=== PATIENT | female | born 1945 | race Caucasian/White ===

== ENCOUNTER 2018-02-27 22:50 | Inpatient (IN) ==
[2018-02-27 23:57] LABS: Basophils # 0.1 10*3/uL (0.0-0.2); Basophils % 0.3 % (0.0-0.8); Hematocrit 35.4 VOL% (35.7-47.0); Hemoglobin 11.2 GM/DL (12.0-16.0); Immature Granulocytes Absolute 0.25 #; Lymphocytes # 0.8 10*3/uL (1.4-4.0); Lymphocytes % 3.3 % (21.3-54.2); Mean Corpuscular HGB Conc 31.6 GM/DL (32-36); Mean Corpuscular Hemoglobin 26 PG (27-34); Mean Corpuscular Volume 82.1 FL (87-102); Mean Platelet Volume 9.2 FL (9.6-12.0); Neutrophils # 21.9 10*3/uL (1.4-7.4); Neutrophils % 91.4 % (38.7-73.9); Platelet Count 261 T/CUMM (130-400); Red Blood Count 4.31 MC/CUMM (3.8-5.5); Red Cell Distribution Width 17.5 % (9.3-17.3)
[2018-02-28] MEDS ORDERED: CEFTAROLINE 600 MG in SODIUM CHLORIDE 0.9% 100 ML IV STA (00:02)
[2018-02-28] MEDS ORDERED: MORPHINE 4 MG/1 ML VIAL IV STA (00:20)
[2018-02-28] MEDS ORDERED: ONDANSETRON 4 MG/2 ML VIAL IV STA (00:20)
[2018-02-28 00:23] LABS: Alanine Aminotransferase 24 U/L (13-56); Albumin 2.2 G/DL (3.4-5.0); Alkaline Phosphatase 100 U/L (45-117); Aspartate Amino Transferase 31 U/L (0-37); Blood Urea Nitrogen 24 MG/DL (7-18); Calcium 8.4 MG/DL (8.5-10.1); Glucose 386 MG/DL (74-106); Osmolality,Calculated 277.9 MOS/KG (273-304); Potassium 3.4 MMOL/L (3.5-5.1); Sodium 129 MMOL/L (136-145); Total Protein 7.6 G/DL (6.4-8.3)
[2018-02-28 00:31] LABS: Lactic Acid 3.4 MMOL/L (0.4-2.0)
[2018-02-28] MEDS ORDERED: SODIUM CHLORIDE 0.9% 1,000 ML IV STA (01:04)
[2018-02-28 01:38] LABS: Band Neutrophils 7 % (0-10); Lymphocytes 3 % (20-55); Segmented Neutrophils 87 % (50-85); Total Cells Counted 100
[2018-02-28 01:39] LABS: Platelet Estimate Normal
[2018-02-28] MEDS ORDERED: GLUCAGON 1 MG VIAL IM PRN ×2 (02:30)
[2018-02-28] MEDS ORDERED: ONDANSETRON 4 MG/2 ML VIAL IV PRN (02:30)
[2018-02-28] MEDS ORDERED: DEXTROSE 50% 25 GM/50 ML VIAL IV PRN ×2 (02:30)
[2018-02-28] MEDS: MORPHINE 4 MG/1 ML VIAL IV PRN ×3 (03:43→20:10)
[2018-02-28] MEDS: POTASSIUM CHLORIDE 20 MEQ TABLET PO PRN ×3 (03:51→09:42)
[2018-02-28] MEDS: INSULIN REGULAR 100 UNIT/ML SUBCUT SCH ×5 (04:15→21:15)
[2018-02-28 07:16] LABS: Basophils # 0.1 10*3/uL (0.0-0.2); Basophils % 0.2 % (0.0-0.8); Hematocrit 32.9 VOL% (35.7-47.0); Hemoglobin 10.4 GM/DL (12.0-16.0); Immature Granulocytes % 1.3 %; Immature Granulocytes Absolute 0.31 #; Lymphocytes # 0.8 10*3/uL (1.4-4.0); Lymphocytes % 3.2 % (21.3-54.2); Mean Corpuscular HGB Conc 31.6 GM/DL (32-36); Mean Corpuscular Hemoglobin 26 PG (27-34); Mean Corpuscular Volume 83.3 FL (87-102); Mean Platelet Volume 9.6 FL (9.6-12.0); Monocytes # 1.1 10*3/uL (0.11-0.8); Monocytes % 4.4 % (1.7-12.7); Neutrophils # 22.5 10*3/uL (1.4-7.4); Neutrophils % 90.9 % (38.7-73.9); Platelet Count 239 T/CUMM (130-400); Red Blood Count 3.95 MC/CUMM (3.8-5.5); Red Cell Distribution Width 17.5 % (9.3-17.3); White Blood Count 24.8 T/CUMM (4-12)
[2018-02-28 07:37] LABS: Band Neutrophils 7 % (0-10); Lymphocytes 9 % (20-55); Platelet Estimate Normal; Segmented Neutrophils 82 % (50-85); Total Cells Counted 100
[2018-02-28 07:52] LABS: Albumin 2.2 G/DL (3.4-5.0); Bilirubin,Total 0.7 MG/DL (0.2-1.0); Calcium 7.9 MG/DL (8.5-10.1); Osmolality,Calculated 278.8 MOS/KG (273-304); Potassium 3.4 MMOL/L (3.5-5.1); Total Protein 7.2 G/DL (6.4-8.3)
[2018-02-28] MEDS ORDERED: FERROUS SULFATE 325 MG TABLET PO SCH (09:00)
[2018-02-28] MEDS ORDERED: ENOXAPARIN 30 MG/0.3 ML SYRINGE SUBCUT SCH (09:00)
[2018-02-28] MEDS: ISOSORBIDE MONONITRATE 30 MG TABLET PO SCH ×2 (09:41→21:15)
[2018-02-28] MEDS: RIVAROXABAN 20 MG TABLET PO SCH (09:41)
[2018-02-28] MEDS: hydrALAZINE 25 MG TABLET PO SCH ×3 (09:42→21:15)
[2018-02-28] MEDS: MULTIVITAMIN (CENTRUM) TABLET PO SCH (09:42)
[2018-02-28] MEDS: CETIRIZINE 10 MG TABLET PO SCH (09:42)
[2018-02-28] MEDS: FERROUS SULFATE 325 MG TABLET PO SCH (09:42)
[2018-02-28] MEDS: PANTOPRAZOLE 40 MG TABLET PO SCH (09:42)
[2018-02-28] MEDS: LISINOPRIL 10 MG TABLET PO SCH ×2 (09:42→21:15)
[2018-02-28] MEDS: AMIODARONE 200 MG TABLET PO SCH (09:42)
[2018-02-28] MEDS: CARVEDILOL 12.5 MG TABLET PO SCH ×2 (09:42→21:15)
[2018-02-28] MEDS: ATORVASTATIN 40 MG TABLET PO SCH (09:43)
[2018-02-28] MEDS: SODIUM CHLORIDE 0.9% 1,000 ML IV SCH (09:43)
[2018-02-28] MEDS: INSULIN NPH 100 UNIT/ML SUBCUT SCH ×2 (09:43→17:59)
[2018-02-28] MEDS: CEFTAROLINE 400 MG in SODIUM CHLORIDE 0.9% 100 ML IV SCH ×2 (12:36→23:44)
[2018-02-28 12:39] LABS: Apearance,Urine CLOUDY (Clear); Bacteria,Urine Many /HPF (Few); Bilirubin,Urine Negative (Negative); Blood, Urine Large mg/dL (Negative); Glucose,Urine (UA) >=500 mg/dL (Negative); Ketones,Urine Negative (Negative); Nitrite,Urine Negative (Negative); Protein,Urine >=500 MG/DL; RBC,Urine 977 /HPF (0-4); Squamous Epithelial Cell,Urine Occasional /HPF (0-10); Urine Color Amber (Yellow); Urine Specific Gravity 1.012 (1.001-1.035); Urine Urobilinogen < 2.0 EU/DL (0.2-1.0); WBC,Urine 461 /HPF (0-6)
[2018-02-28] MEDS: traMADol 50 MG TABLET PO PRN ×2 (14:05→23:46)
[2018-02-28] MEDS ORDERED: SKIN HEALING OINT (AQUAPHOR) 50 GM TUBE TOP PRN (14:08)
[2018-03-01] MEDS: MORPHINE 4 MG/1 ML VIAL IV PRN (01:02)
[2018-03-01 05:36] LABS: Basophils # 0.1 10*3/uL (0.0-0.2); Basophils % 0.2 % (0.0-0.8); Hematocrit 31.7 VOL% (35.7-47.0); Hemoglobin 10.1 GM/DL (12.0-16.0); Immature Granulocytes % 1.2 %; Immature Granulocytes Absolute 0.28 #; Lymphocytes # 0.8 10*3/uL (1.4-4.0); Lymphocytes % 3.4 % (21.3-54.2); Mean Corpuscular HGB Conc 31.9 GM/DL (32-36); Mean Corpuscular Hemoglobin 26 PG (27-34); Mean Corpuscular Volume 81.7 FL (87-102); Monocytes # 1.4 10*3/uL (0.11-0.8); Monocytes % 6.1 % (1.7-12.7); Neutrophils # 20.4 10*3/uL (1.4-7.4); Neutrophils % 89.1 % (38.7-73.9); Platelet Count 267 T/CUMM (130-400); Red Blood Count 3.88 MC/CUMM (3.8-5.5); Red Cell Distribution Width 17.7 % (9.3-17.3); White Blood Count 22.9 T/CUMM (4-12)
[2018-03-01 05:51] LABS: Calcium 8.5 MG/DL (8.5-10.1); Osmolality,Calculated 272.9 MOS/KG (273-304); Potassium 4.2 MMOL/L (3.5-5.1)
[2018-03-01 05:52] LABS: Lactic Acid 1.1 MMOL/L (0.4-2.0)
[2018-03-01 05:56] LABS: Band Neutrophils 1 % (0-10); Lymphocytes 3 % (20-55); Segmented Neutrophils 88 % (50-85); Total Cells Counted 100
[2018-03-01 05:59] LABS: Hypochromasia 1+; Platelet Estimate Adequate
[2018-03-01] MEDS: traMADol 50 MG TABLET PO PRN ×3 (06:24→20:56)
[2018-03-01] MEDS: LEVOTHYROXINE 50 MCG TABLET PO SCH (06:24)
[2018-03-01] MEDS: SODIUM CHLORIDE 0.9% 1,000 ML IV SCH (07:58)
[2018-03-01] MEDS: LISINOPRIL 10 MG TABLET PO SCH ×2 (09:11→20:56)
[2018-03-01] MEDS: hydrALAZINE 25 MG TABLET PO SCH ×3 (09:11→20:56)
[2018-03-01] MEDS: ATORVASTATIN 40 MG TABLET PO SCH (09:11)
[2018-03-01] MEDS: CETIRIZINE 10 MG TABLET PO SCH (09:11)
[2018-03-01] MEDS: MULTIVITAMIN (CENTRUM) TABLET PO SCH (09:11)
[2018-03-01] MEDS: FERROUS SULFATE 325 MG TABLET PO SCH (09:11)
[2018-03-01] MEDS: ISOSORBIDE MONONITRATE 30 MG TABLET PO SCH ×2 (09:12→20:56)
[2018-03-01] MEDS: RIVAROXABAN 20 MG TABLET PO SCH (09:12)
[2018-03-01] MEDS: AMIODARONE 200 MG TABLET PO SCH (09:12)
[2018-03-01] MEDS: PANTOPRAZOLE 40 MG TABLET PO SCH (09:12)
[2018-03-01] MEDS: CARVEDILOL 12.5 MG TABLET PO SCH ×2 (09:12→20:56)
[2018-03-01] MEDS: INSULIN REGULAR 100 UNIT/ML SUBCUT SCH ×4 (09:49→20:57)
[2018-03-01] MEDS: INSULIN NPH 100 UNIT/ML SUBCUT SCH ×2 (10:00→20:58)
[2018-03-01] MEDS ORDERED: ASPIRIN 325 MG TABLET ONE (10:44)
[2018-03-01] MEDS: CEFTAROLINE 400 MG in SODIUM CHLORIDE 0.9% 100 ML IV SCH (11:51)
[2018-03-01] MEDS ORDERED: LEVOFLOXACIN INJ 500 MG in PREMIX 1 EACH IV SCH (13:30)
[2018-03-02] MEDS: CEFTAROLINE 400 MG in SODIUM CHLORIDE 0.9% 100 ML IV SCH ×2 (00:26→12:58)
[2018-03-02] MEDS: LEVOTHYROXINE 50 MCG TABLET PO SCH (06:35)
[2018-03-02 06:56] LABS: Basophils % 0.3 % (0.0-0.8); Hematocrit 29.5 VOL% (35.7-47.0); Hemoglobin 9.3 GM/DL (12.0-16.0); Immature Granulocytes % 2.3 %; Immature Granulocytes Absolute 0.36 #; Lymphocytes # 0.9 10*3/uL (1.4-4.0); Lymphocytes % 5.9 % (21.3-54.2); Mean Corpuscular HGB Conc 31.5 GM/DL (32-36); Mean Corpuscular Hemoglobin 26 PG (27-34); Mean Corpuscular Volume 82.2 FL (87-102); Mean Platelet Volume 9.4 FL (9.6-12.0); Monocytes # 1.3 10*3/uL (0.11-0.8); Monocytes % 8.3 % (1.7-12.7); Neutrophils # 13.2 10*3/uL (1.4-7.4); Neutrophils % 83.2 % (38.7-73.9); Platelet Count 261 T/CUMM (130-400); Red Blood Count 3.59 MC/CUMM (3.8-5.5); Red Cell Distribution Width 17.3 % (9.3-17.3); White Blood Count 15.9 T/CUMM (4-12)
[2018-03-02 07:26] LABS: Calcium 7.8 MG/DL (8.5-10.1); Osmolality,Calculated 278.7 MOS/KG (273-304); Potassium 4.2 MMOL/L (3.5-5.1)
[2018-03-02] MEDS: traMADol 50 MG TABLET PO PRN ×3 (09:28→21:36)
[2018-03-02] MEDS: CETIRIZINE 10 MG TABLET PO SCH (09:29)
[2018-03-02] MEDS: AMIODARONE 200 MG TABLET PO SCH (09:29)
[2018-03-02] MEDS: RIVAROXABAN 20 MG TABLET PO SCH (09:30)
[2018-03-02] MEDS: hydrALAZINE 25 MG TABLET PO SCH ×3 (09:30→21:36)
[2018-03-02] MEDS: CARVEDILOL 12.5 MG TABLET PO SCH ×2 (09:30→21:36)
[2018-03-02] MEDS: MULTIVITAMIN (CENTRUM) TABLET PO SCH (09:30)
[2018-03-02] MEDS: PANTOPRAZOLE 40 MG TABLET PO SCH (09:31)
[2018-03-02] MEDS: LISINOPRIL 10 MG TABLET PO SCH ×2 (09:31→21:35)
[2018-03-02] MEDS: FERROUS SULFATE 325 MG TABLET PO SCH (09:31)
[2018-03-02] MEDS: ISOSORBIDE MONONITRATE 30 MG TABLET PO SCH ×2 (09:31→21:36)
[2018-03-02] MEDS: INSULIN REGULAR 100 UNIT/ML SUBCUT SCH ×4 (09:32→21:37)
[2018-03-02] MEDS: ATORVASTATIN 40 MG TABLET PO SCH (09:33)
[2018-03-02] MEDS: SODIUM CHLORIDE 0.9% 1,000 ML IV SCH ×2 (09:36→21:35)
[2018-03-02] MEDS: INSULIN NPH 100 UNIT/ML SUBCUT SCH ×2 (10:46→21:35)
[2018-03-02] MEDS: LEVOFLOXACIN INJ 250 MG in PREMIX 1 EACH IV SCH (15:03)
[2018-03-03] MEDS: CEFTAROLINE 400 MG in SODIUM CHLORIDE 0.9% 100 ML IV SCH ×2 (00:07→18:10)
[2018-03-03] MEDS: traMADol 50 MG TABLET PO PRN ×3 (03:34→22:29)
[2018-03-03] MEDS: SODIUM CHLORIDE 0.9% 1,000 ML IV SCH ×2 (03:37→22:25)
[2018-03-03] MEDS: LEVOTHYROXINE 50 MCG TABLET PO SCH (06:07)
[2018-03-03 08:05] LABS: Basophils # 0.1 10*3/uL (0.0-0.2); Basophils % 0.6 % (0.0-0.8); Eosinophils % 0.1 % (0.00-10.9); Hematocrit 28.8 VOL% (35.7-47.0); Hemoglobin 9.1 GM/DL (12.0-16.0); Immature Granulocytes % 2.5 %; Immature Granulocytes Absolute 0.27 #; Lymphocytes # 0.8 10*3/uL (1.4-4.0); Mean Corpuscular HGB Conc 31.6 GM/DL (32-36); Mean Corpuscular Hemoglobin 26 PG (27-34); Mean Corpuscular Volume 81.6 FL (87-102); Mean Platelet Volume 9.5 FL (9.6-12.0); Monocytes # 1.2 10*3/uL (0.11-0.8); Monocytes % 11.1 % (1.7-12.7); Neutrophils # 8.4 10*3/uL (1.4-7.4); Neutrophils % 78.7 % (38.7-73.9); Platelet Count 275 T/CUMM (130-400); Red Blood Count 3.53 MC/CUMM (3.8-5.5); Red Cell Distribution Width 17.3 % (9.3-17.3); White Blood Count 10.7 T/CUMM (4-12)
[2018-03-03 08:37] LABS: Calcium 8.2 MG/DL (8.5-10.1); Osmolality,Calculated 281.5 MOS/KG (273-304); Potassium 3.9 MMOL/L (3.5-5.1)
[2018-03-03] MEDS: INSULIN NPH 100 UNIT/ML SUBCUT SCH ×2 (08:46→22:24)
[2018-03-03] MEDS: hydrALAZINE 25 MG TABLET PO SCH ×3 (08:58→22:24)
[2018-03-03] MEDS: CETIRIZINE 10 MG TABLET PO SCH (08:58)
[2018-03-03] MEDS: PANTOPRAZOLE 40 MG TABLET PO SCH (08:58)
[2018-03-03] MEDS: LISINOPRIL 10 MG TABLET PO SCH ×2 (08:58→22:24)
[2018-03-03] MEDS: MULTIVITAMIN (CENTRUM) TABLET PO SCH (08:58)
[2018-03-03] MEDS: FERROUS SULFATE 325 MG TABLET PO SCH (08:58)
[2018-03-03] MEDS: AMIODARONE 200 MG TABLET PO SCH (08:58)
[2018-03-03] MEDS: CARVEDILOL 12.5 MG TABLET PO SCH ×2 (08:58→22:23)
[2018-03-03] MEDS: ATORVASTATIN 40 MG TABLET PO SCH (08:58)
[2018-03-03] MEDS: ISOSORBIDE MONONITRATE 30 MG TABLET PO SCH ×2 (08:58→22:24)
[2018-03-03] MEDS: RIVAROXABAN 20 MG TABLET PO SCH (08:58)
[2018-03-03] MEDS: INSULIN REGULAR 100 UNIT/ML SUBCUT SCH ×4 (08:59→22:34)
[2018-03-03] MEDS: LEVOFLOXACIN INJ 250 MG in PREMIX 1 EACH IV SCH (17:28)
[2018-03-04] MEDS: SODIUM CHLORIDE 0.9% 1,000 ML IV SCH ×2 (06:28→21:48)
[2018-03-04] MEDS: LEVOTHYROXINE 50 MCG TABLET PO SCH (06:29)
[2018-03-04 07:22] LABS: Calcium 8.5 MG/DL (8.5-10.1); Osmolality,Calculated 281.5 MOS/KG (273-304); Potassium 3.7 MMOL/L (3.5-5.1)
[2018-03-04] MEDS: CETIRIZINE 10 MG TABLET PO SCH (09:36)
[2018-03-04] MEDS: RIVAROXABAN 20 MG TABLET PO SCH (09:36)
[2018-03-04] MEDS: FERROUS SULFATE 325 MG TABLET PO SCH (09:36)
[2018-03-04] MEDS: AMIODARONE 200 MG TABLET PO SCH (09:37)
[2018-03-04] MEDS: MULTIVITAMIN (CENTRUM) TABLET PO SCH (09:37)
[2018-03-04] MEDS: LISINOPRIL 10 MG TABLET PO SCH ×2 (09:37→21:48)
[2018-03-04] MEDS: hydrALAZINE 25 MG TABLET PO SCH ×3 (09:37→21:48)
[2018-03-04] MEDS: CARVEDILOL 12.5 MG TABLET PO SCH ×2 (09:37→21:48)
[2018-03-04] MEDS: INSULIN REGULAR 100 UNIT/ML SUBCUT SCH ×3 (09:37→19:06)
[2018-03-04] MEDS: ATORVASTATIN 40 MG TABLET PO SCH (09:37)
[2018-03-04] MEDS: ISOSORBIDE MONONITRATE 30 MG TABLET PO SCH ×2 (09:37→21:47)
[2018-03-04] MEDS: PANTOPRAZOLE 40 MG TABLET PO SCH (09:37)
[2018-03-04] MEDS: traMADol 50 MG TABLET PO PRN ×2 (13:52→21:47)
[2018-03-04] MEDS: INSULIN NPH 100 UNIT/ML SUBCUT SCH ×2 (13:55→21:55)
[2018-03-04] MEDS: LEVOFLOXACIN INJ 250 MG in PREMIX 1 EACH IV SCH (15:40)
[2018-03-05] MEDS: INSULIN REGULAR 100 UNIT/ML SUBCUT SCH ×5 (00:28→21:28)
[2018-03-05] MEDS: LEVOTHYROXINE 50 MCG TABLET PO SCH (06:29)
[2018-03-05] MEDS ORDERED: INSULIN NPH 100 UNIT/ML SUBCUT SCH (07:49)
[2018-03-05 08:07] LABS: Basophils # 0.1 10*3/uL (0.0-0.2); Basophils % 0.4 % (0.0-0.8); Eosinophils % 0.3 % (0.00-10.9); Hematocrit 32.7 VOL% (35.7-47.0); Hemoglobin 10.6 GM/DL (12.0-16.0); Immature Granulocytes % 2.5 %; Immature Granulocytes Absolute 0.33 #; Lymphocytes # 1.1 10*3/uL (1.4-4.0); Lymphocytes % 8.3 % (21.3-54.2); Mean Corpuscular HGB Conc 32.4 GM/DL (32-36); Mean Corpuscular Hemoglobin 26 PG (27-34); Mean Corpuscular Volume 80.7 FL (87-102); Mean Platelet Volume 8.6 FL (9.6-12.0); Monocytes # 1.2 10*3/uL (0.11-0.8); Monocytes % 8.7 % (1.7-12.7); Neutrophils # 10.6 10*3/uL (1.4-7.4); Neutrophils % 79.8 % (38.7-73.9); Platelet Count 384 T/CUMM (130-400); Red Blood Count 4.05 MC/CUMM (3.8-5.5); Red Cell Distribution Width 17.3 % (9.3-17.3); White Blood Count 13.3 T/CUMM (4-12)
[2018-03-05 08:25] LABS: Albumin 1.6 G/DL (3.4-5.0); Bilirubin,Total 0.6 MG/DL (0.2-1.0); Calcium 8.6 MG/DL (8.5-10.1); Potassium 3.8 MMOL/L (3.5-5.1); Total Protein 7.2 G/DL (6.4-8.3)
[2018-03-05] MEDS: ISOSORBIDE MONONITRATE 30 MG TABLET PO SCH ×2 (08:26→21:29)
[2018-03-05] MEDS: RIVAROXABAN 20 MG TABLET PO SCH (08:26)
[2018-03-05] MEDS: CARVEDILOL 12.5 MG TABLET PO SCH ×2 (08:26→21:28)
[2018-03-05] MEDS: ATORVASTATIN 40 MG TABLET PO SCH (08:26)
[2018-03-05] MEDS: FERROUS SULFATE 325 MG TABLET PO SCH (08:26)
[2018-03-05] MEDS: MULTIVITAMIN (CENTRUM) TABLET PO SCH (08:26)
[2018-03-05] MEDS: CETIRIZINE 10 MG TABLET PO SCH (08:26)
[2018-03-05] MEDS: PANTOPRAZOLE 40 MG TABLET PO SCH (08:26)
[2018-03-05] MEDS: LISINOPRIL 10 MG TABLET PO SCH ×2 (08:31→21:29)
[2018-03-05] MEDS: hydrALAZINE 25 MG TABLET PO SCH ×3 (08:31→16:04)
[2018-03-05] MEDS: AMIODARONE 200 MG TABLET PO SCH (08:31)
[2018-03-05] MEDS: FUROSEMIDE 80 MG TABLET PO SCH (08:35)
[2018-03-05] MEDS: SODIUM CHLORIDE 0.9% 1,000 ML IV SCH (09:43)
[2018-03-05 14:02] LABS: Apearance,Urine CLOUDY (Clear); Bilirubin,Urine Negative (Negative); Blood, Urine Large mg/dL (Negative); Glucose,Urine (UA) 150 mg/dL (Negative); Ketones,Urine Negative (Negative); Nitrite,Urine Negative (Negative); Protein,Urine 100 MG/DL; RBC,Urine 931 /HPF (0-4); Urine Color Amber (Yellow); Urine Urobilinogen < 2.0 EU/DL (0.2-1.0); WBC,Urine 66 /HPF (0-6)
[2018-03-05] MEDS ORDERED: cefTRIAXone 1,000 MG in SYRINGE 1 EACH IV SCH (16:00)
[2018-03-05] MEDS: LEVOFLOXACIN INJ 250 MG in PREMIX 1 EACH IV SCH (16:03)
[2018-03-05] MEDS ORDERED: hydrALAZINE 20 MG/1 ML VIAL IV PRN (16:07)
[2018-03-06 05:59] LABS: Basophils % 0.3 % (0.0-0.8); Eosinophils % 0.2 % (0.00-10.9); Hematocrit 34.5 VOL% (35.7-47.0); Hemoglobin 10.9 GM/DL (12.0-16.0); Immature Granulocytes % 2.4 %; Lymphocytes # 1.5 10*3/uL (1.4-4.0); Lymphocytes % 11.8 % (21.3-54.2); Mean Corpuscular HGB Conc 31.6 GM/DL (32-36); Mean Corpuscular Hemoglobin 26 PG (27-34); Mean Corpuscular Volume 80.6 FL (87-102); Mean Platelet Volume 8.5 FL (9.6-12.0); Monocytes # 0.8 10*3/uL (0.11-0.8); Monocytes % 6.7 % (1.7-12.7); Neutrophils # 9.7 10*3/uL (1.4-7.4); Neutrophils % 78.6 % (38.7-73.9); Platelet Count 427 T/CUMM (130-400); Red Blood Count 4.28 MC/CUMM (3.8-5.5); Red Cell Distribution Width 17.3 % (9.3-17.3); White Blood Count 12.3 T/CUMM (4-12)
[2018-03-06] MEDS: LEVOTHYROXINE 50 MCG TABLET PO SCH (06:19)
[2018-03-06 06:26] LABS: Albumin 1.5 G/DL (3.4-5.0); Bilirubin,Total 0.7 MG/DL (0.2-1.0); Calcium 9.1 MG/DL (8.5-10.1); Potassium 3.3 MMOL/L (3.5-5.1); Total Protein 6.9 G/DL (6.4-8.3)
[2018-03-06] MEDS ORDERED: POTASSIUM CHLORIDE 20 MEQ TABLET PO ONE (07:16)
[2018-03-06] MEDS ORDERED: CEFTAROLINE 600 MG in SODIUM CHLORIDE 0.9% 100 ML IV SCH (08:00)
[2018-03-06 08:11] LABS: Barbiturates Screen,Urine Negative (Negative); Benzodiazepines Screen,Urine Negative (Negative); Cannabinoid Screen,Urine Negative (Negative); Opiate Screen,Urine Positive (Negative); Phencyclidine Screen,Urine Negative (Negative)
[2018-03-06] MEDS: INSULIN REGULAR 100 UNIT/ML SUBCUT SCH ×4 (08:28→21:20)
[2018-03-06 08:36] LABS: Hepatitis A Ab IgM Quant 0.35 Index; Hepatitis A Ab IgM Result Negative (Negative); Hepatitis B Core IgM Quant < 0.05 Index; Hepatitis B Core IgM Result Negative (Negative); Hepatitis B Surface Ag Result Negative (Negative); Hepatitis C Virus Ab Quant 0.19 Index; Hepatitis C Virus Ab Result Negative (Negative)
[2018-03-06] MEDS: PANTOPRAZOLE 40 MG TABLET PO SCH (09:27)
[2018-03-06] MEDS: FUROSEMIDE 80 MG TABLET PO SCH (09:28)
[2018-03-06] MEDS: CARVEDILOL 12.5 MG TABLET PO SCH ×2 (09:28→21:19)
[2018-03-06] MEDS: LISINOPRIL 10 MG TABLET PO SCH ×2 (09:31→21:20)
[2018-03-06] MEDS: ISOSORBIDE MONONITRATE 30 MG TABLET PO SCH ×2 (09:34→21:19)
[2018-03-06] MEDS: RIVAROXABAN 20 MG TABLET PO SCH (09:34)
[2018-03-06] MEDS: MULTIVITAMIN (CENTRUM) TABLET PO SCH (09:34)
[2018-03-06] MEDS: FERROUS SULFATE 325 MG TABLET PO SCH (09:34)
[2018-03-06 11:47] LABS: INR 1.8; PT Patient Result 18.8 SECS
[2018-03-06 13:17] LABS: Apearance,Urine Slightly Hazy (Clear); Bilirubin,Urine Negative (Negative); Blood, Urine Large mg/dL (Negative); Glucose,Urine (UA) 150 mg/dL (Negative); Ketones,Urine Negative (Negative); Nitrite,Urine Negative (Negative); Protein,Urine 100 MG/DL; Urine Color Amber (Yellow); Urine Urobilinogen 0.2 EU/DL (0.2-1.0)
[2018-03-06 13:18] LABS: RBC,Urine TNTC /HPF (0-4); Squamous Epithelial Cell,Urine Few /HPF (0-10); WBC,Urine 0-5 /HPF (0-6)
[2018-03-06] MEDS: cefTRIAXone 2,000 MG in SYRINGE 1 EACH IV SCH (16:27)
[2018-03-06] MEDS: ACYCLOVIR INJ 850 MG in SODIUM CHLORIDE 0.9% 250 ML IV SCH (17:31)
[2018-03-06] MEDS: AMPICILLIN INJ 2,000 MG in SODIUM CHLORIDE 0.9% 100 ML IV SCH (18:51)
[2018-03-06] MEDS: VANCOMYCIN INJ 1,250 MG in SODIUM CHLORIDE 0.9% 250 ML IV SCH (21:22)
[2018-03-07] MEDS: AMPICILLIN INJ 2,000 MG in SODIUM CHLORIDE 0.9% 100 ML IV SCH ×2 (00:55→06:15)
[2018-03-07] MEDS: ACYCLOVIR INJ 850 MG in SODIUM CHLORIDE 0.9% 250 ML IV SCH ×2 (02:14→09:40)
[2018-03-07] MEDS: cefTRIAXone 2,000 MG in SYRINGE 1 EACH IV SCH (05:41)
[2018-03-07] MEDS: LEVOTHYROXINE 50 MCG TABLET PO SCH (06:16)
[2018-03-07 06:38] LABS: Albumin 1.2 G/DL (3.4-5.0); Calcium 8.1 MG/DL (8.5-10.1); Osmolality,Calculated 306.6 MOS/KG (273-304); Potassium 3.5 MMOL/L (3.5-5.1); Total Protein 5.8 G/DL (6.4-8.3)
[2018-03-07] MEDS: INSULIN REGULAR 100 UNIT/ML SUBCUT SCH ×4 (09:35→22:03)
[2018-03-07] MEDS: MULTIVITAMIN (CENTRUM) TABLET PO SCH (09:36)
[2018-03-07] MEDS: FUROSEMIDE 80 MG TABLET PO SCH (09:36)
[2018-03-07] MEDS: FERROUS SULFATE 325 MG TABLET PO SCH (09:36)
[2018-03-07] MEDS: PANTOPRAZOLE 40 MG TABLET PO SCH (09:36)
[2018-03-07] MEDS: RIVAROXABAN 20 MG TABLET PO SCH (09:36)
[2018-03-07] MEDS: LISINOPRIL 10 MG TABLET PO SCH ×2 (09:36→22:03)
[2018-03-07] MEDS: CARVEDILOL 12.5 MG TABLET PO SCH ×2 (09:36→22:03)
[2018-03-07] MEDS: ISOSORBIDE MONONITRATE 30 MG TABLET PO SCH ×2 (09:40→22:04)
[2018-03-07] MEDS: AMIODARONE 200 MG TABLET PO SCH (11:48)
[2018-03-07] MEDS: VANCOMYCIN INJ 1,250 MG in SODIUM CHLORIDE 0.9% 250 ML IV SCH (17:22)
[2018-03-07] MEDS ORDERED: traMADol 50 MG TABLET PO ONE (18:41)
[2018-03-07 19:12] LABS: Apearance,Urine Slightly Hazy (Clear); Bilirubin,Urine Negative (Negative); Blood, Urine Moderate mg/dL (Negative); Glucose,Urine (UA) >=500 mg/dL (Negative); Ketones,Urine Negative (Negative); Nitrite,Urine Negative (Negative); Protein,Urine 30 MG/DL; RBC,Urine 279 /HPF (0-4); Squamous Epithelial Cell,Urine Occasional /HPF (0-10); Urine Color Yellow (Yellow); Urine Specific Gravity 1.007 (1.001-1.035); Urine Urobilinogen < 2.0 EU/DL (0.2-1.0)
[2018-03-07] MEDS ORDERED: TAMSULOSIN 0.4 MG CAPSULE PO SCH (21:00)
[2018-03-08] MEDS: LEVOTHYROXINE 50 MCG TABLET PO SCH (06:25)
[2018-03-08 06:46] LABS: Basophils % 0.3 % (0.0-0.8); Eosinophils # 0.2 10*3/uL (0.0-0.87); Eosinophils % 2.1 % (0.00-10.9); Hematocrit 27.7 VOL% (35.7-47.0); Immature Granulocytes % 2.3 %; Immature Granulocytes Absolute 0.26 #; Lymphocytes # 1.4 10*3/uL (1.4-4.0); Lymphocytes % 12.4 % (21.3-54.2); Mean Corpuscular HGB Conc 32.5 GM/DL (32-36); Mean Corpuscular Hemoglobin 26 PG (27-34); Mean Corpuscular Volume 79.8 FL (87-102); Mean Platelet Volume 8.5 FL (9.6-12.0); Monocytes # 0.7 10*3/uL (0.11-0.8); Monocytes % 5.8 % (1.7-12.7); Neutrophils # 8.7 10*3/uL (1.4-7.4); Neutrophils % 77.1 % (38.7-73.9); Platelet Count 347 T/CUMM (130-400); Red Blood Count 3.47 MC/CUMM (3.8-5.5); Red Cell Distribution Width 17.6 % (9.3-17.3); White Blood Count 11.3 T/CUMM (4-12)
[2018-03-08 07:26] LABS: Calcium 7.7 MG/DL (8.5-10.1); Osmolality,Calculated 286.8 MOS/KG (273-304); Potassium 3.4 MMOL/L (3.5-5.1)
[2018-03-08] MEDS ORDERED: POTASSIUM CHLORIDE 20 MEQ PACK PO ONE (09:01)
[2018-03-08] MEDS: INSULIN REGULAR 100 UNIT/ML SUBCUT SCH ×2 (09:06→12:41)
[2018-03-08] MEDS: MULTIVITAMIN (CENTRUM) TABLET PO SCH (09:08)
[2018-03-08] MEDS: LISINOPRIL 10 MG TABLET PO SCH (09:08)
[2018-03-08] MEDS: AMIODARONE 200 MG TABLET PO SCH (09:08)
[2018-03-08] MEDS: PANTOPRAZOLE 40 MG TABLET PO SCH (09:08)
[2018-03-08] MEDS: FUROSEMIDE 80 MG TABLET PO SCH (09:08)
[2018-03-08] MEDS: CARVEDILOL 12.5 MG TABLET PO SCH (09:08)
[2018-03-08] MEDS: FERROUS SULFATE 325 MG TABLET PO SCH (09:08)
[2018-03-08] MEDS: ISOSORBIDE MONONITRATE 30 MG TABLET PO SCH (09:08)
[2018-03-08] MEDS: RIVAROXABAN 20 MG TABLET PO SCH (09:09)
[2018-03-08] MEDS: VANCOMYCIN INJ 1,250 MG in SODIUM CHLORIDE 0.9% 250 ML IV SCH (12:43)
[2018-03-08 16:16] VITALS: BP 141/63
== END 2018-03-08 16:33 | disposition home health service (06) | DRG 603 ==
LOC: N.ED 22:50 → N.EDINP 02-28 02:28 → SUATTDRO 02-28 02:28 → N.5E 02-28 02:59
PROVIDERS: ATTEND Internal Medicine